=== PATIENT | male | born 1955 | race Caucasian/White ===

== ENCOUNTER 2017-05-12 04:55 | Emergency (ER) | payer BC ==
[2017-05-12 05:39] LABS: #Basophils 0.1 thou/uL (0.0-0.2); #Eosinphils 0.5 thou/uL (0.0-0.7); #Lymphocytes 1.6 thou/uL (1.20-3.40); #Monocytes 0.6 thou/uL (0.11-0.59); #Neutrophils 4.8 thou/uL (1.40-6.50); %Basophils 0.8 % (0.0-1.0); %Eosinophils 6.8 % (0.0-10.0); %Monocytes 7.8 % (0.0-10.0); Hematocrit 44.3 % (42.0-52.0); Mean Platelet Volume 7.8 fL (7.4-10.4); Red Blood Cell (RBC) Count 5.07 mill/uL (4.70-6.10); White Blood Cell (WBC) Count 7.6 thou/uL (4.8-10.8)
[2017-05-12 05:51] LABS: Bilirubin Negative (Negative); Blood, Urine Negative (Negative); Glucose, Urine (Dipstick) Negative (Negative); Ketone, Urine Negative (Negative); Nitrite Negative (Negative); Protein, Urine (Dipstick) 30 mg/dL (Neg-Trace); Urobilinogen 0.2 mg/dL (0.2-1.0)
[2017-05-12 05:54] LABS: Bacteria/HPF None Seen HPF (None Seen); Hyaline Casts/LPF 0-3 HYALINE CAST LPF (0-3 Hyaline); Squamous Epithelial None Seen HPF (0-3); WBC/HPF None Seen HPF (0-3)
[2017-05-12 05:59] LABS: ALT (SGPT) 17 U/L (8-55); AST (SGOT) 14 U/L (5-34); Alkaline Phosphatase 42 U/L (40-150); Anion Gap 13 mmol/L (10-20); BUN (Urea Nitrogen) 21 mg/dL (8.4-25.7); Bilirubin, Total 0.4 mg/dL (0.2-1.2); Calc. Creatinine Clearance 0 mL/min (70-130); Calcium 9.6 mg/dL (7.8-10.44); Carbon Dioxide 26 mmol/L (23-31); Chloride 104 mmol/L (98-107); Estimated GFR-MDRD 57
== END 2017-05-12 06:21 | disposition home or self-care (01) ==
LOC: ERS 04:55
DX: R33.9 Retention of urine, unspecified (principal); E11.9 Type 2 diabetes mellitus without complications; E78.5 Hyperlipidemia, unspecified; I10 Essential (primary) hypertension; F17.200 Nicotine dependence, unspecified, uncomplicated
CPT/HCPCS: 36415; 51702; 80053; 81003; 81015; 85025; 87086

== ENCOUNTER 2017-09-22 09:22 | Outpatient (CLI) | payer BC ==
--- NOTE | 2017-09-22 17:10 | EKG ---
Test Reason : PREOP Blood Pressure : / mmHG Vent. Rate : 058 BPM Atrial Rate : 058 BPM P-R Int : 186 ms QRS Dur : 096 ms QT Int : 392 ms P-R-T Axes : 065 015 044 degrees QTc Int : 384 ms Sinus bradycardia Nonspecific T wave abnormality Abnormal ECG When compared with ECG of 24-OCT-2009 08:06, No significant change was found Confirmed by DR. Shoaib GONCALVES ([id number]) on 09/22/2017 5:09:37 PM Referred By: Lia DEL ANGEL Confirmed By:DR. Shoaib GONCALVES
== END 2017-09-22 09:23 | disposition home or self-care (01) ==
LOC: EKG 09:22
PROVIDERS: ATTEND Family Medicine
DX: Z01.810 Encounter for preprocedural cardiovascular examination (principal)
CPT/HCPCS: 93005; 93010

== ENCOUNTER 2017-10-09 16:09 | Outpatient (CLI) | payer BC ==
[2017-10-09 17:22] LABS: Hemoglobin 14.4 g/dL (14.0-18.0); Mean Corpuscular HGB CONC 33.1 g/dL (32.0-36.0); Mean Corpuscular Hemoglobin 28.8 pg (27.0-31.0); Mean Corpuscular Volume 86.8 fl (80.0-94.0); Mean Platelet Volume 7.9 fL (7.4-10.4); Platelet Count 222 thou/uL (130-400); RBC Distribution Width 12.7 % (11.5-14.5); Red Blood Cell (RBC) Count 4.99 mill/uL (4.70-6.10); White Blood Cell (WBC) Count 7.9 thou/uL (4.8-10.8)
[2017-10-09 17:52] LABS: Anion Gap 10 mmol/L (10-20); BUN (Urea Nitrogen) 16 mg/dL (8.4-25.7); Calc. Creatinine Clearance 0 mL/min (70-130); Calcium 9.7 mg/dL (7.8-10.44); Carbon Dioxide 30 mmol/L (23-31); Chloride 103 mmol/L (98-107); Estimated GFR-MDRD 74; Glucose 126 mg/dL (80-115); Potassium 3.7 mmol/L (3.5-5.1); Sodium 139 mmol/L (136-145)
== END 2017-10-09 16:10 | disposition home or self-care (01) ==
LOC: LABBT 16:09
PROVIDERS: ATTEND Urology
DX: Z01.818 Encounter for other preprocedural examination (principal); N40.0 Benign prostatic hyperplasia without lower urinary tract symptoms
CPT/HCPCS: 80048; 85027

== ENCOUNTER 2017-10-14 05:56 | Day surgery (SDC) | payer BC ==
[2017-10-09 16:42] VITALS: BMI 34.4
[2017-10-14] MEDS ORDERED: Dexamethasone 10 MG/ML VIAL SLOW IVP SCH (06:30)
[2017-10-14] MEDS ORDERED: Levofloxacin 500 mg/D5W 100 ml Premix Bag ONE (06:32)
[2017-10-14] MEDS ORDERED: Furosemide 20 MG/2 ML VIAL ONE (08:42)
[2017-10-14] MEDS ORDERED: B & O ONE (08:42)
[2017-10-14] MEDS ORDERED: Fentanyl 250 MCG/5 ML VIAL ONE (08:52)
[2017-10-14] MEDS ORDERED: Glycopyrrolate 0.2 MG/ML 5 ML SYRINGE ONE (14:42)
[2017-10-14] MEDS ORDERED: Succinylcholine Chloride 20 MG/ML 10 ml SYRINGE FS ONE (14:42)
[2017-10-14] MEDS ORDERED: ePHEDrine/0.9% NaCl/PF SYRINGE 50 mg/10 ml ONE (14:42)
[2017-10-14] MEDS ORDERED: Propofol 200 MG/20 ML VIAL ONE (14:42)
--- NOTE | 2017-10-14 15:36 | OP ---
DATE OF SERVICE: 10/14/2017 PREOPERATIVE DIAGNOSIS: Benign prostatic hypertrophy. POSTOPERATIVE DIAGNOSIS: Benign prostatic hypertrophy. PROCEDURE: GreenLight laser vaporization of the prostate with enucleation of the middle lobe using 331,106 joules. SURGEON: Dr. Dorsey. ANESTHESIA: Initially General with laryngeal mask airway changed to endotracheal tube. FINDINGS: Very large mobile intravesical lobe, which took more time than anticipated for resection. COMPLICATIONS: There were no complications. SPECIMEN: Middle lobe. ESTIMATED BLOOD LOSS: Minimal. DRAINS REMAINING: A 20 Russian 2-way. INDICATIONS: The patient is a 62-year-old male. He was found to have BPH and elected for definitive therapy after a prior concern for retention. TECHNIQUE: The patient was brought to the room by Anesthesia, was placed on the table in supine position. After receiving general anesthetic, legs were placed in lithotomy position. His perineum was prepped and draped in sterile fashion. Using a 23 Russian cystoscope, it was traversed and bladder inspected. It was difficult to get into the bladder given the middle lobe obstruction and hypertrophy/ very high-riding intravesical middle lobe. This was done with some pressure. The ureters could not be seen for a significant portion of the case given the anatomy of the middle lobe. Given this, and given that resection was intravesicle, a power of 80 was used--which was the majority of the case needed to enucleate this lobe. When I was far enough back, I was able to use a power of 180, but I was still only addressing the seemingly growing/ endless middle lobe. More than 2 hours passed, and I was just finishing the middle lobe. At this point, I felt that it was safer to hold off on doing the lateral lobes, as I suspect he would have significant benefit from just removing the middle lobe. Also, I suspected the lateral lobes would add at least 1-2 hours more. At this point, the ureteral orifices were identified and had been preserved. Then a power of 80 was used on the resected prostatic bed for hemostasis. With a decompressed bladder, no bleeding was noted. Multiple chips were large enough that they had to be grasped and removed manually and individually. Once all chips were ensured to be out, the scope was removed a final time and then a 20 Russian Mckinney was placed to gravity. The patient tolerated procedure well and was awakened and sent to the PACU in stable condition. [facility]
== END 2017-10-14 14:12 | disposition home or self-care (01) ==
LOC: SDC 05:56
PROVIDERS: ATTEND Urology
PROC: 0V508ZZ Destruction of Prostate, Via Natural or Artificial Opening Endoscopic (ICD-10-PCS; principal; 2017-10-14)
DX: N40.1 Benign prostatic hyperplasia with lower urinary tract symptoms (principal); R35.0 Frequency of micturition; E78.00 Pure hypercholesterolemia, unspecified; I10 Essential (primary) hypertension; E11.9 Type 2 diabetes mellitus without complications; Z79.2 Long term (current) use of antibiotics; Z79.84 Long term (current) use of oral hypoglycemic drugs; Z79.899 Other long term (current) drug therapy; Z88.0 Allergy status to penicillin; Z91.018 Allergy to other foods
CPT/HCPCS: 88305; J1100; J1940; J1956; J2704; J3010

== ENCOUNTER 2018-04-20 09:57 | Outpatient (CLI) | payer MEDICARE, BC ==
[2018-04-20 10:27] LABS: Hemoglobin 14.9 g/dL (14.0-18.0); Mean Corpuscular HGB CONC 33.6 g/dL (32.0-36.0); Mean Corpuscular Hemoglobin 28.5 pg (27.0-31.0); Mean Corpuscular Volume 84.8 fL (78.0-98.0); Mean Platelet Volume 8.3 fL (7.4-10.4); Platelet Count 248 thou/uL (130-400); RBC Distribution Width 12.4 % (11.5-14.5); Red Blood Cell (RBC) Count 5.24 mill/uL (4.70-6.10); White Blood Cell (WBC) Count 8.1 thou/uL (4.8-10.8)
[2018-04-20 10:49] LABS: Anion Gap 11 mmol/L (10-20); BUN (Urea Nitrogen) 14 mg/dL (8.4-25.7); Calc. Creatinine Clearance 0 mL/min (70-130); Calcium 9.6 mg/dL (7.8-10.44); Carbon Dioxide 27 mmol/L (23-31); Chloride 106 mmol/L (98-107); Estimated GFR-MDRD 72; Glucose 179 mg/dL (80-115); Potassium 3.7 mmol/L (3.5-5.1); Sodium 140 mmol/L (136-145)
== END 2018-04-20 09:58 | disposition home or self-care (01) ==
LOC: LABBT 09:57
PROVIDERS: ATTEND Urology
DX: Z01.812 Encounter for preprocedural laboratory examination (principal); Z12.5 Encounter for screening for malignant neoplasm of prostate; N40.1 Benign prostatic hyperplasia with lower urinary tract symptoms; R33.9 Retention of urine, unspecified; R39.11 Hesitancy of micturition; R39.12 Poor urinary stream; R31.29 Other microscopic hematuria; Z87.442 Personal history of urinary calculi
CPT/HCPCS: 80048; 81001; 85027; 87077; 87086; 87186

== ENCOUNTER 2018-04-28 09:01 | Day surgery (SDC) | payer MEDICARE, BC ==
[2018-04-20 10:10] VITALS: BMI 33.7
[2018-04-28] MEDS ORDERED: Dexamethasone 4 mg/ml Vial ONE (10:00)
[2018-04-28] MEDS ORDERED: Levofloxacin 500 mg/D5W 100 ml Premix Bag ONE (10:01)
[2018-04-28] MEDS ORDERED: Famotidine/PF 20 mg/2ml Vial ONE (10:08)
[2018-04-28] MEDS ORDERED: Fentanyl 100 MCG/2 ML VIAL ONE (10:08)
[2018-04-28] MEDS ORDERED: B & O 30 MG SUPP ONE (10:29)
[2018-04-28] MEDS ORDERED: Furosemide 20 MG/2 ML VIAL ONE (10:29)
[2018-04-28] MEDS ORDERED: Ondansetron HCl/PF 4 MG/2 ML Vial ONE (13:23)
[2018-04-28] MEDS ORDERED: PHENYLEPHRINE-NS 100 MCG/ML 10 ML SYRINGE ONE (13:23)
[2018-04-28] MEDS ORDERED: ePHEDrine/0.9% NaCl/PF SYRINGE 50 mg/10 ml ONE (13:23)
[2018-04-28] MEDS ORDERED: PROPOFOL 200 MG/20 ML VIAL ONE (13:23)
[2018-04-28] MEDS ORDERED: Glycopyrrolate 0.2 MG/ML 5 ML SYRINGE ONE (13:23)
[2018-04-28] MEDS ORDERED: Lidocaine 1% PF 5 ML VIAL ONE (13:23)
--- NOTE | 2018-04-28 14:01 | OP ---
DATE OF PROCEDURE: 04/28/2018 PREOPERATIVE DIAGNOSES: Benign prostatic hypertrophy, status post GreenLight laser vaporization of the prostate previously with postop retention, but able to be voiding. POSTOPERATIVE DIAGNOSES: Benign prostatic hypertrophy, status post GreenLight laser vaporization of the prostate previously with postop retention, but able to be voiding. PROCEDURE: GreenLight laser vaporization of prostate with enucleation of the remaining middle lobe; total 338,468 joules used. BLOOD LOSS: Minimal. COMPLICATIONS: None, but the middle lobe was still present and folded over on itself to some degree with significant edema from the prior resection and potential hyperplastic regrowth. DRAIN REMAINING: A 20 Telugu 2-way turned into a Councill. COMPLICATIONS: No complications. SPECIMEN: Prostate. INDICATIONS: The patient is a 63-year-old male who I saw in the office and underwent a very difficult and long GreenLight laser vaporization of the prostate with a middle lobe that just continued seemingly keep growing during the operation and ultimately after 3 hours, I stopped resection on just the middle lobe, felt like there was a good resection of all the intravesical component and that he would potentially do well, but ultimately needed a repeat procedure. He had retention postop day #2, but was able to void and then had retention approximately 3-4 months out again and so at this time, I pushed for returning to the operating room for further resection. TECHNIQUE: The patient was brought into the room by Anesthesia, laid on the table in supine position. After receiving general anesthetic, legs placed in lithotomy position and his perineum was prepped and draped in sterile fashion. Using 22.5F rigid cystoscope was inserted with 30 degree lens, the urethra was traversed and the bladder inspected. The ureteral orifices were difficult to identify, but ultimately were noted and not injured throughout the case. First , there was a portion of the middle lobe that still remained and ultimately it laid back on itself into the floor of the bladder. This required meticulous resection taking approximately 30-45 minutes. At this point, the remaining middle lobe at the bladder neck was fully transected. A power of 80 was used for all of this and when used at the bladder neck on the lateral lobes. A power of 180 was used for the rest of the gland. It was taken down to the level of the veru. I left a small amount of coapting tissue above the veru because of concerns for the patient's lax sphincter. When the scope was removed , a good stream was noted. Scope was put back in. All chips were extracted. The grasper was used for the larger chips since these did not easily rinse out. No chips were remaining. At a minimum volume, hemostasis was ensured. The scope was removed a final time and a catheter was placed; however, there was some difficulty at first placing it, so I took the catheter back out. I put the scope in and left a wire and then placed the catheter over wire and then placed it to gravity. The patient tolerated the procedure well and was awakened and transferred to the PACU in stable condition. NIMESH
== END 2018-04-28 14:45 | disposition home or self-care (01) ==
LOC: SDC 09:01
PROVIDERS: ATTEND Urology
PROC: 0V508ZZ Destruction of Prostate, Via Natural or Artificial Opening Endoscopic (ICD-10-PCS; principal; 2018-04-28)
DX: N40.1 Benign prostatic hyperplasia with lower urinary tract symptoms (principal); R35.0 Frequency of micturition; R39.11 Hesitancy of micturition; R33.8 Other retention of urine; R39.12 Poor urinary stream; E78.00 Pure hypercholesterolemia, unspecified; I10 Essential (primary) hypertension; E11.9 Type 2 diabetes mellitus without complications; F17.290 Nicotine dependence, other tobacco product, uncomplicated; Z79.899 Other long term (current) drug therapy; Z79.84 Long term (current) use of oral hypoglycemic drugs; Z88.0 Allergy status to penicillin; Z91.018 Allergy to other foods
CPT/HCPCS: 52648; G0103; 88305; J0131; J1100; J1940; J1956; J2001; J2405; J2704; J3010; S0028

== ENCOUNTER 2019-09-21 15:16 | Outpatient (CLI) | payer MEDICARE, BC ==
--- NOTE | 2019-09-21 16:44 | ULT ---
RENAL ULTRASOUND HISTORY: Elevated creatinine COMPARISON: None FINDINGS: Right Kidney: Size: 12.9 x 5.0 x 6.2 cm. Abnormality: Normal cortical echotexture. No hydronephrosis. Left Kidney: Size: 13.1 x 5.0 x 6.0 cm. Abnormality: No hydronephrosis is demonstrated. There are punctate echogenicities involving the lower pole of the left kidney suspicious for tiny nonobstructing renal calculi. Urinary bladder: Normal mucosa. Prevoid bladder volume was 66 cc. Postvoid bladder volume is 33 cc. IMPRESSION: No hydronephrosis. Left nephrolithiasis.
== END 2019-09-21 15:17 | disposition home or self-care (01) ==
LOC: BICULT 15:16
PROVIDERS: ATTEND Family Medicine
DX: R79.89 Other specified abnormal findings of blood chemistry (principal); N20.0 Calculus of kidney
CPT/HCPCS: 76770

== ENCOUNTER 2025-03-31 09:31 | Outpatient (CLI) | payer MEDICARE, OTHER ==
[2025-03-31 10:00] VITALS: BMI 34.4
[2025-04-01 05:14] LABS: Myoglobin, Serum 47 ng/mL (28-72)
== END 2025-03-31 09:32 | disposition home or self-care (01) ==
LOC: LABBT 09:31
PROVIDERS: ATTEND Internal Medicine Cardiovascular Disease
DX: Z01.818 Encounter for other preprocedural examination (principal); I48.0 Paroxysmal atrial fibrillation
CPT/HCPCS: 83010; 83051; 83874; 93005; 93010

== ENCOUNTER 2025-04-06 08:37 | Day surgery (SDC) | payer MEDICARE, OTHER ==
[2025-03-31 11:06] LABS: #Basophils 0.03 10x3/uL (0.0-0.2); #Eosinophils 0.18 10x3/uL (0.0-0.7); #Monocytes 0.37 10x3/uL (0.11-0.59); #Neutrophils 3.13 10x3/uL (1.40-6.50); %Basophils 0.6 % (0.0-1.0); %Eosinophils 3.8 % (0.0-10.0); %Lymphocytes 20.6 % (21.0-51.0); %Monocytes 7.9 % (0.0-10.0); %Neutrophils 66.7 % (42.0-75.0); Hematocrit 48.1 % (42.0-52.0); Hemoglobin 15.8 g/dL (14.0-18.0); Mean Corpuscular Hemoglobin 28.3 pg (27.0-31.0); Mean Corpuscular Volume 86.2 fL (78.0-98.0); Platelet Count 241 10x3/uL (130-400); Red Blood Cell (RBC) Count 5.58 mill/uL (4.70-6.10); White Blood Cell (WBC) Count 4.70 10x3/uL (4.8-10.8)
[2025-03-31 11:25] LABS: AST (SGOT) 24 U/L (11-34); Albumin 4.5 g/dL (3.1-4.5); Alkaline Phosphatase 33 U/L (40-110); Anion Gap 12 mmol/L (10-20); BUN (Urea Nitrogen) 22 mg/dL (8.4-25.7); Bilirubin, Total 0.5 mg/dL (0.3-1.2); Calc. Creatinine Clearance 74 mL/min (70-130); Calcium 9.8 mg/dL (7.8-10.44); Carbon Dioxide 31 mmol/L (23-31); Chloride 103 mmol/L (98-107); Globulin 3.0 g/dL (2.4-3.5); Glucose 86 mg/dL (83-110); Potassium 3.7 mmol/L (3.5-5.1); Sodium 142 mmol/L (136-145)
[2025-03-31 11:33] LABS: INR-International Normal Ratio 1.1; Prothrombin Time 14.3 sec (12.0-14.7)
[2025-03-31 11:34] LABS: PTT 33.1 sec (22.9-36.1)
[2025-03-31 11:41] LABS: ALT (SGPT) 19 U/L (Less than 45)
[2025-04-06] MEDS ORDERED: Heparin 10,000 UNITS/ 10 ML VIAL ONE (10:35)
[2025-04-06] MEDS ORDERED: fentaNYL PF 100 MCG/2 ML SYRINGE ONE (11:40)
[2025-04-06] MEDS ORDERED: SUCCINYLCHOLINE/SOD CL,ISO/PF 200 MG/10 ML SYRINGE FS ONE (11:59)
[2025-04-06] MEDS ORDERED: PHENYLEPHRINE-NS 100 MCG/ML 10 ML SYRINGE ONE (11:59)
[2025-04-06] MEDS ORDERED: PROPOFOL 200 MG/20 ML VIAL ONE (11:59)
[2025-04-06] MEDS ORDERED: Lidocaine 1% PF 5 ML VIAL ONE (11:59)
[2025-04-06] MEDS ORDERED: Glycopyrrolate 0.2 MG/ML 5 ML SYRINGE ONE (11:59)
[2025-04-06] MEDS ORDERED: Ondansetron PF 4 MG/2 ML Vial ONE (11:59)
[2025-04-06] MEDS ORDERED: Rocuronium Bromide 10 MG/ML (10ML VIAL) ONE (11:59)
[2025-04-06] MEDS ORDERED: SUGAMMADEX SODIUM 200 MG/2 ML VIAL ONE (13:50)
== END 2025-04-06 17:40 | disposition home or self-care (01) ==
LOC: SDC 08:37
PROVIDERS: ATTEND Internal Medicine Cardiovascular Disease
PROC: 4A0234Z Measurement of Cardiac Electrical Activity, Percutaneous Approach (ICD-10-PCS; principal; 2025-04-06)
DX: I48.0 Paroxysmal atrial fibrillation (principal); I10 Essential (primary) hypertension; E78.5 Hyperlipidemia, unspecified; E11.9 Type 2 diabetes mellitus without complications; Z91.018 Allergy to other foods; Z88.0 Allergy status to penicillin
CPT/HCPCS: 80053; 85025; 85347 ×2; 85610; 85730; 86850; 86900; 86901; 93005; 93623; 93656; 93657; J1100; J1644 ×2; J2405; J2704; J2720; 36415; C1730; C1733; C1759; C1760; C1766; C1769; C1893; C1894